=== PATIENT | male | born 1995 ===

== ENCOUNTER 2017-10-07 08:18 | Emergency (ER) | payer OTHER ==
--- NOTE | 2017-10-07 08:52 | UC ---
Knee Pain HPI - HPI Summary HPI Summary: 22 year old with Had contact with the wall boards while playing ice hockey last night. Painful right knee. Seen by ortho at game and no ligament damage just to ensure no fracture - History of Current Complaint Chief Complaint: UCUpperExtremity Stated Complaint: KNEE PAIN Time Seen by Provider: 10/07/17 08:49 Hx Obtained From: Patient Onset/Duration: Sudden Onset Aggravating Factor(s): Movement Alleviating Factor(s): Rest Able to Bear Weight: Yes - Allergies/Home Medications Allergies/Adverse Reactions: Allergies Allergy/AdvReac Type Severity Reaction Status Date / Time No Known Allergies Allergy Verified 10/07/17 08:33 Home Medications: Home Medications Ibuprofen TAB* [Advil TAB*] 800 mg PO ONCE 10/07/17 [History Confirmed 10/07/17] PMH/Surg Hx/FS Hx/Imm Hx Previously Healthy: Yes - Surgical History Surgical History: None - Family History Known Family History: Positive: None - Social History Occupation: Student Alcohol Use: Rare Substance Use Type: None Smoking Status (MU): Never Smoked Tobacco Review of Systems Musculoskeletal: Arthralgia Is Patient Immunocompromised?: No All Other Systems Reviewed And Are Negative: Yes Physical Exam Triage Information Reviewed: Yes Appearance: Well-Appearing, No Pain Distress, Well-Nourished Vital Signs: Initial Vital Signs Temp 98.4 F 10/07/17 08:29 Pulse 51 10/07/17 08:29 Resp 16 10/07/17 08:29 BP 130/64 10/07/17 08:29 Pulse Ox 100 10/07/17 08:29 Vital Signs Reviewed: Yes Eye Exam: Normal Neck: Positive: 1 Musculoskeletal Exam: Normal Musculoskeletal: Positive: Strength Intact, ROM Intact, Other: - right anterior knee / quad swollen and tenderness to palpation. no joint line tenderness. neg lachmans. n opopliteal effusion. normal strength. can squat and FROM but discomfort with flexion and extension Neurological Exam: Normal Psychological Exam: Normal Skin Exam: Normal Knee Pain Course/Dx - Course Course Of Treatment: neg xray . discussed with pt and warehouse trainer. also pt seen by ortho from school yesterday - Differential Dx/Diagnosis Differential Diagnosis/HQI/PQRI: Internal Derangement Of Knee, Burleson-Schlatter Disease, Sprain, Strain Provider Diagnoses: Right quad contusion Discharge - Discharge Plan Condition: Good Disposition: HOME Patient Education Materials: Swollen Knee Joint (ED) Additional Instructions: Your xray was negative today.
--- NOTE | 2017-10-07 09:25 | RAD ---
INDICATION: Right knee pain after hockey injury the previous night COMPARISON: None TECHNIQUE: 4 view radiograph of the right knee. FINDINGS: The visualized bones are well-corticated and properly aligned. The joint spaces are properly maintained. There is no radiographic evidence of joint effusion. There is no acute fracture, dislocation or other focal bony abnormality. IMPRESSION: Normal knee radiograph as described above. If the patient's symptoms persist, follow-up imaging is recommended.
== END 2017-10-07 09:45 | disposition home or self-care (01) ==
LOC: UCEAST 08:18
DX: S70.11XA Contusion of right thigh, initial encounter (principal); W22.01XA Walked into wall, initial encounter; Y93.65 Activity, lacrosse and field hockey; Y92.9 Unspecified place or not applicable; Y99.9 Unspecified external cause status
CPT/HCPCS: 99201; G0463